=== PATIENT | male | born 1970 | race African-American/Black ===

== ENCOUNTER 2017-09-29 11:10 | Emergency (ER) | payer OTHER ==
[~2017-09-29] VITALS: Ht 177.8 cm; Wt 80.6 kg
[~2017-09-29 11:10] MED LIST: AMOXICILLIN500 MG PO; FLEXERIL5 MG PO; NAPROSYN500 MG PO; NASONEX17 GM BOTH NARES; ULTRAM50 MG PO
[2017-09-29 11:18] VITALS: BP 157/110
[2017-09-29] MEDS ORDERED: NAPROSYN500 MG PO (14:33)
[2017-09-29] MEDS ORDERED: LORTAB 5-325 M1 EACH PO (14:33)
[2017-09-29] MEDS ORDERED: FLEXERIL10 MG PO (14:33)
== END 2017-09-29 15:10 | disposition home or self-care (01) ==
LOC: EME 11:10
DX: S16.1XXA Strain of muscle, fascia and tendon at neck level, initial encounter (principal); V43.62XA Car passenger injured in collision with other type car in traffic accident, initial encounter; Y92.410 Unspecified street and highway as the place of occurrence of the external cause; G89.29 Other chronic pain; M54.5 Low back pain; I10 Essential (primary) hypertension; E78.5 Hyperlipidemia, unspecified; F32.9 Major depressive disorder, single episode, unspecified; F17.200 Nicotine dependence, unspecified, uncomplicated
CPT/HCPCS: 99281; 99284; J1885